=== PATIENT | female | born 1970 | race Caucasian/White ===

== ENCOUNTER 2016-12-17 07:57 | Emergency (ER) | payer OTHER ==
[~2016-12-17] VITALS: Ht 157.5 cm; Wt 60.5 kg
[2016-12-17 08:02] VITALS: Ht 157.5 cm; Wt 60.5 kg
[2016-12-17 08:56] LABS: ADD SCAN DIFF NO
[2016-12-17] MEDS ORDERED: LIDOCAINE/MYLANTA 40 ML BTL PO ONE (09:00)
[2016-12-17 09:01] LABS: BASOPHILS % 0.5 % (0.0-2.0); EOSINOPHILS # 0.1 10^3/ul (0.0-0.5); EOSINOPHILS % 1.1 % (0.0-7.0); HEMATOCRIT 38.6 % (37.0-47.0); HEMOGLOBIN 13.3 g/dl (12.0-16.0); LYMPHOCYTES % 31.2 % (15.0-51.0); MEAN CORPUSCULAR HGB CONC 34.5 g/dl (32.0-37.0); MEAN CORPUSCULAR VOLUME 92.8 fl (82.0-101.0); MEAN PLATELET VOLUME 9.9 fl (7.4-10.4); MONOCYTE # 0.4 10^3/ul (0.3-0.9); MONOCYTES % 6.5 % (0.0-11.0); NEUTROPHIL # 3.9 10^3/ul (1.6-7.5); NEUTROPHILS % 60.5 % (39.0-77.0); PLATELET COUNT 309 10^3/UL (140-415); RED BLOOD COUNT 4.16 10^6/ul (4.20-5.40); RED CELL DISTRIBUTION WIDTH 12.4 % (11.5-14.5); WHITE BLOOD COUNT 6.4 10^3/ul (4.8-10.8)
[2016-12-17 09:09] LABS: ADD UMIC YES; UR ASCORBIC ACID NEGATIVE (NEGATIVE); UR BACTERIA MODERATE /HPF (NONE SEEN); UR BILIRUBIN (Dip) NEGATIVE (NEGATIVE); UR BLOOD (Dip) 2+ mg/dL (NEGATIVE); UR CLARITY SLIGHTLY CLOUDY (CLEAR); UR COLOR YELLOW (YELLOW); UR GLUCOSE (Dip) NEGATIVE (NEGATIVE); UR KETONES (Dip) NEGATIVE (NEGATIVE); UR LEUKOCYTE ESTERASE (Dip) TRACE Leu/ul (NEGATIVE); UR NITRITE (Dip) NEGATIVE (NEGATIVE); UR RBC 2 /HPF (0-5); UR SPECIFIC GRAVITY (Dip) 1.011 (1.003-1.030); UR TOTAL PROTEIN (Dip) NEGATIVE (NEGATIVE); UR UROBILINOGEN (Dip) NEGATIVE (NEGATIVE)
--- NOTE | 2016-12-17 09:14 | RADRPT ---
PROCEDURE: Abdominal Ultrasound (right upper quadrant). CLINICAL INDICATION: Right upper quadrant pain. TECHNIQUE: Multiple real-time longitudinal and transverse images of the right upper quadrant of th e abdomen were acquired utilizing a curved array transducer. Images were reviewed on a high-resoluti on PACS workstation. COMPARISON: None FINDINGS: The liver is normal in size and echogenicity. No focal masses are identified. There is no evidenc e of intra or extrahepatic ductal dilatation. The common bile duct measures 4.7 mm in diameter. No gallstones or gallbladder wall thickening is seen. The visualized portions of the pancreas are unremarkable with obscuration of the tail of the pancrea s. No free fluid is identified. There is no evidence of right hydronephrosis or renal calcification. The right kidney measures 9.7 cm in length. The visualized portions of the aorta and inferior vena cava are within normal limits. IMPRESSION: 1. Unremarkable right upper quadrant ultrasound. RPTAT: KK .Stone Parkinson MD, MD Date Time Electronically viewed and signed by .Stone Parkinson MD, MD on 12/17/2016 09:14 .B/
[2016-12-17 09:32] LABS: ALBUMIN 5.3 g/dl (3.3-4.9); ALBUMIN/GLOBULIN RATIO 1.47; BILIRUBIN,INDIRECT 0.5 mg/dl (0-1.1); BILIRUBIN,TOTAL 0.5 mg/dl (0.2-1.3); CALCIUM 10.7 mg/dl (8.4-10.2); CREATININE 0.68 mg/dl (0.44-1.00); POTASSIUM 3.7 mmol/L (3.5-5.1); TOTAL PROTEIN 8.9 g/dl (6.1-8.1)
[2016-12-17] MEDS ORDERED: OMEP20CA16 PO (10:42)
[2016-12-17] MEDS ORDERED: RANI150T9 PO (10:42)
--- NOTE | 2016-12-17 11:53 | ERD ---
ER Documentation Chief Complaint Date/Time DATE: 12/17/16 TIME: 11:46 Chief Complaint Complains of abdominal pain x 2 days HPI 38-year-old female complaining of epigastric abdominal pain 3 days. The pain is constant, but worse after eating. She has decreased appetite, had not been eating for last 2 days. Patient stated the pain radiates to the back. She has nausea, but no vomiting or diarrhea. She does have acid reflux. LMP 11/24/2016. Denies tobacco use, alcohol on occasion. Denies any other medical history. ROS All systems reviewed and are negative except as per history of present illness. Medications Home Meds Active Scripts Ranitidine Hcl* (Zantac*) 150 Mg Tablet, 150 MG PO BID Y for EPIGASTRIC PAIN, # 30 TAB Prov:KAYLAN RODRÍGUEZ. DIRECTOR SPECIALTY 12/17/16 Omeprazole* (Omeprazole*) 20 Mg Capsule.dr, 20 MG PO QAM, #14 Prov:KAYLAN RODRÍGUEZ. DIRECTOR SPECIALTY 12/17/16 Allergies Allergies: Coded Allergies: No Known Allergy (Unverified , 12/17/16) PMhx/Soc Medical and Surgical Hx: pt denies Medical Hx, pt denies Surgical Hx Physical Exam Vitals Vital Signs Date Time Temp Pulse Resp B/P Pulse Ox O2 Delivery O2 Flow Rate FiO2 12/17/16 08:02 97.7 65 20 141/75 99 Physical Exam General: Well-developed, well-nourished, conscious and coherent, in no distress Skin: Warm and dry without rash, good texture and turgor Head: Normocephalic without evidence of trauma Eyes: Sclera and conjunctivae normal; pupils equal, round, and reactive to light; extraocular movements are intact Neck: Supple without meningismus or adenopathy. Carotids are equal. Trachea midline. No bruits or JVD Chest: Normal AP diameter. Good expansion without retractions. Nontender. Lungs are clear to auscultate bilaterally with good tidal volume Heart: Regular rate and rhythm. No murmur, rub, or gallops heard Abdomen: Soft, epigastric and right upper quadrant tenderness without masses , guarding, or rebound. Bowel sounds are active. No hepatosplenomegaly Extremities: Full range of motion. Good strength bilaterally. No clubbing, cyanosis, or edema. Peripheral pulses are intact. Sensation intact Neuro: Alert and oriented 4, GCS 15. Cranial nerves grossly intact. Motor and sensory exams nonfocal. Moves all extremities. Speech clear. Gait normal Result Diagram: 12/17/16 0845 12/17/16 0845 Results 24 hrs Laboratory Tests Test 12/17/16 08:45 White Blood Count 6.410^3/ul Red Blood Count 4.1610^6/ul Hemoglobin 13.3g/dl Hematocrit 38.6% Mean Corpuscular Volume 92.8fl Mean Corpuscular Hemoglobin 32.0pg Mean Corpuscular Hemoglobin Concent 34.5g/dl Red Cell Distribution Width 12.4% Platelet Count 19515^3/UL Mean Platelet Volume 9.9fl Neutrophils % 60.5% Lymphocytes % 31.2% Monocytes % 6.5% Eosinophils % 1.1% Basophils % 0.5% Nucleated Red Blood Cells % 0.0/100WBC Neutrophils # 3.910^3/ul Lymphocytes # 2.010^3/ul Monocytes # 0.410^3/ul Eosinophils # 0.110^3/ul Basophils # 0.010^3/ul Nucleated Red Blood Cells # 0.010^3/ul Urine Color YELLOW Urine Clarity SLIGHTLY CLOUDY Urine pH 5.0 Urine Specific [place] 1.011 Urine Ketones NEGATIVEmg/dL Urine Nitrite NEGATIVEmg/dL Urine Bilirubin NEGATIVEmg/dL Urine Urobilinogen NEGATIVEmg/dL Urine Leukocyte Esterase TRACELeu/ul Urine Microscopic RBC 2/HPF Urine Microscopic WBC 2/HPF Urine Bacteria MODERATE/HPF Urine Hemoglobin 2+mg/dL Urine Glucose NEGATIVEmg/dL Urine Total Protein NEGATIVEmg/dl Sodium Level 136mmol/L Potassium Level 3.7mmol/L Chloride Level 99mmol/L Carbon Dioxide Level 26mmol/L Anion Gap 15 Blood Urea Nitrogen 9mg/dl Creatinine 0.68mg/dl Glucose Level 99mg/dl Calcium Level 10.7mg/dl Total Bilirubin 0.5mg/dl Direct Bilirubin 0.00mg/dl Indirect Bilirubin 0.5mg/dl Aspartate Amino Transf (AST/SGOT) 28IU/L Alanine Aminotransferase (ALT/SGPT) 31IU/L Alkaline Phosphatase 79IU/L Total Protein 8.9g/dl Albumin 5.3g/dl Globulin 3.60g/dl Albumin/Globulin Ratio 1.47 Lipase 93U/L Current Medications Medications (Trade) Dose Ordered Sig/Gracie Route PRN Reason Start Time Stop Time Status Last Admin Dose Admin Miscellaneous Medication (Gi Cocktail (2)) 40 ml ONCE ONCE PO 12/17/16 09:00 12/17/16 09:01 DC 12/17/16 08:42 PROCEDURE: Abdominal Ultrasound (right upper quadrant). CLINICAL INDICATION: Right upper quadrant pain. TECHNIQUE: Multiple real-time longitudinal and transverse images of the right upper quadrant of the abdomen were acquired utilizing a curved array transducer. Images were reviewed on a high-resolution PACS workstation. COMPARISON: None FINDINGS: The liver is normal in size and echogenicity. No focal masses are identified. There is no evidence of intra or extrahepatic ductal dilatation. The common bile duct measures 4.7 mm in diameter. No gallstones or gallbladder wall thickening is seen. The visualized portions of the pancreas are unremarkable with obscuration of the tail of the pancreas. No free fluid is identified. There is no evidence of right hydronephrosis or renal calcification. The right kidney measures 9.7 cm in length. The visualized portions of the aorta and inferior vena cava are within normal limits. IMPRESSION: 1. Unremarkable right upper quadrant ultrasound. RPTAT: KK .Stone Parkinson MD MD Date Time Electronically viewed and signed by .Stone Parkinson MD, on 2016 09:14 .B/ CC: KAYLAN RODRÍGUEZ DIRECTOR SPECIALTY Procedures/MDM Well-appearing 46-year-old female presented ED with epigastric abdominal pain 3 days. Patient given GI cocktail in the ED. Patient reports improvement of epigastric pain after GI cocktail. EKG: Normal sinus rhythm at 65 bpm, normal axis. No ST segment elevation or depression. No ectopic beats. No QT prolongation. No other EKG abnormalities. EKG read by Dr. Wolfe. CBC, CMP, lipase, UA are all unremarkable. Gallbladder ultrasound also unremarkable. Low suspicion for HI, aortic dissection, acute appendicitis, cholecystitis, pancreatitis, or other acute abdomen. Patient appears well, stable for discharge and outpatient management. Medical decision making shared with patient and family. Education provided to patient and family. Patient and family expressed understanding of the plan. Medications on discharge: Omeprazole, ranitidine. Follow-up: Primary care provider in 2-3 days or return to ED if worse. Departure Diagnosis: Primary Impression: Epigastric pain Condition: Good Patient Instructions: Epigastric Pain (Uncertain Cause) [facility] Usted se ace hecho un examen mdico de control que le indica que no est en candido condicin que requiera tratamiento urgente en el Departamento de Emergencia. Un estudio ms profundo y el tratamiento de martinez condicin pueden esperar sin ningn riesgo hasta que usted sea atendida/o en el consultorio de martinez mdico o candido cl renetta. Es responsabilidad suya arreglar candido eyal para el seguimiento del blake. MANEJO DE CONDICIONES NO URGENTES EN EL FUTURO 1) Si usted tiene un mdico de atencin primaria: Usted debera llamar a martinez mdico de atencin primaria antes de venir al departamento de emergencia. Despus de las horas de consultorio, martinez doctor o martinez asociado/a est disponible por telfono. El mdico o enfermero de bambi en el servicio telefnico puede asesorarle por eileen medio para atender el problema, o blake contrario se puede programar candido eyal. 2) Si usted no tiene un mdico de atencin primaria: Llame al mdico o clnica de referencia que aparece abajo don las horas de consultorio para hacer candido eyal para que le vean. CLINICAS: [facility] [phone] [facility] [phone] [facility] [phone] [place] [id number] [phone] [facility] [phone] [id number] [facility] [phone] [address] Additional Instructions: Llame al doctor MAANA y derrek candido EYAL PARA DENTRO DE 2-3 TORRES.Dgale a la secretaria que nosotros le instruimos hacer esta eyal.Avise o llame si martinez condicin se empeora antes de la eyal. Regresa aqui si peor o no mejor. KAYLAN RODRÍGUEZ. RAMANDEEP Dec 17, 2016 11:53
== END 2016-12-17 10:48 | disposition home or self-care (01) ==
LOC: FTE 07:57
DX: R10.13 Epigastric pain (principal)
CPT/HCPCS: 76705; 80053; 81001; 83690; 85025; 93005; Z7610; 36415